=== PATIENT | female | born 1980 | race Two or more races ===

== ENCOUNTER 2017-10-28 09:32 | Emergency (ER) | payer OTHER ==
[2017-10-28 09:53] VITALS: BMI 26.6
--- NOTE | 2017-10-28 10:55 | PDOC ---
History of Present Illness - General Chief Complaint: Pain, Acute Stated Complaint: ABD PAIN Time Seen by Provider: 10/28/17 10:06 History Source: Patient Exam Limitations: No Limitations - History of Present Illness Travel History: No Initial Comments: 10/28/17 10:50 37y F no pmhx presents with intermittent lower abd pain. The patient states that she has been having nausea, vomiting, Diarrhea between Wednesday and Wednesday assoc With intermittent cramping abdominal pain - nausea vomiting diarrhea since resolved however she occasionally still has some lower abdominal cramping. She denies any fevers chills. He does note that family members have also been having similar symptoms. Patient notes that her abdominal pain has been improving over the past 2 days. She denies any blood in her vomitus, blood in her stool, and travel, abdominal surgery, dysuria, hematuria, foul-smelling urine. Patient denies any chest pain, shortness of breath, back pain, leg swelling, lightheadedness . She is currently having her period now. She denies any current abdominal pain She has a PMD at [facility] does not recall name no prior surgical hx Past History - Past Medical History Allergies/Adverse Reactions: Allergies Allergy/AdvReac Type Severity Reaction Status Date / Time No Known Allergies Allergy Verified 10/28/17 09:42 Home Medications: Ambulatory Orders NK [No Known Home Medication] 10/28/17 Anemia: No Asthma: No Cancer: No COPD: No Diabetes: No GI Disorders: No HTN: No Liver Disease: No Psychiatric Problems: No Thyroid Disease: No - Surgical History Abdominal Surgery: No Cardiac Surgery: No Cholecystectomy: No - Immunization History Immunization Up to Date: No - Suicide/Smoking/Psychosocial Hx Smoking History: Never smoked Have you smoked in the past 12 months: No Information on smoking cessation initiated: No Hx Alcohol Use: No Drug/Substance Use Hx: No Substance Use Type: None Review of Systems - Review of Systems Able to Perform ROS?: Yes Comments:: 10/28/17 10:52 Constitutional - no reported Fever, Chills, HEENT: no reported vision changes, sore throat Respiratory: no reported cough, sob, hemoptysis Cardiac: no reported chest pain, palpitations, light headedness, leg swelling Abd/GI: + abd pain, nausea, vomiting, diarrhea no reported blood per rectum, melena, : no reported dysuria, frequency, discharge Musculskelatal - no reported back pain, joint swelling skin - no reported bruising, erythema, rash neurological: no reported headache, numbness, focal weakness, tingling, ataxia, hematologic: no reported easy bruising, easy bleeding *Physical Exam - Vital Signs Last Vital Signs Temp Pulse Resp BP Pulse Ox 98.1 F 70 18 116/71 99 10/28/17 09:52 10/28/17 09:52 10/28/17 09:52 10/28/17 09:52 10/28/17 09:52 - Physical Exam Comments: 10/28/17 10:53 GENERAL: The patient is awake, alert, and fully oriented, Nontoxic - in no acute distress. HEAD: Normocephalic, atraumatic. EYES: extraocular movements intact, sclera anicteric, conjunctiva clear. ENT: Normal voice, Moist mucous membranes. NECK: Normal range of motion, supple LUNGS: Breath sounds equal, clear to auscultation bilaterally. No wheezes, no rhonchi, no rales. HEART: Regular rate and rhythm, normal S1 and S2 without murmur, rub or gallop. ABDOMEN: Soft, nontender, normoactive bowel sounds. No guarding, no rebound. . No CVA tenderness EXTREMITIES: Normal range of motion, no edema. No clubbing or cyanosis. No cords, erythema, or tenderness. NEUROLOGICAL: No facial assymetry, Normal speech, PSYCH: Normal mood, normal affect. SKIN: Warm, Dry, normal turgor, Medical Decision Making - Medical Decision Making 10/28/17 10:53 Suspect resolving gastroenteritis. She does not have any abdominal pain at this point her abdomen is soft and nontender. Check a UA to rule out UTI and . We will reassess abdomen this at this soft we'll discharge patient with outpatient follow-up Return precautions were discussed 10/28/17 11:39 abd soft nontender on reassesment will dc wiht pmd fu ua and hcg negative return precautions were discussed I discussed the physical exam findings, ancillary test results and final diagnoses with the patient. I answered all of the patient's questions. The patient was satisfied with the care received and felt comfortable with the discharge plan and treatment plan. The patient will call their primary care physician within 24 hours to arrange follow-up and will return to the Emergency Department with any new, persistent or worsening symptoms. *DC/Admit/Observation/Transfer Diagnosis at time of Disposition: Abdominal pain Qualifiers: Abdominal location: generalized Qualified Code(s): R10.84 - Generalized abdominal pain - Discharge Dispostion Disposition: HOME Condition at time of disposition: Improved Decision to Admit order: No - Referrals Referrals: Dariela Gonzales MD [Primary Care Provider] - - Patient Instructions Printed Discharge Instructions: DI for Abdominal Pain-Adult Additional Instructions: Regrese al departamento de emergencia de inmediato con CUALQUIER sntoma nuevo, persistente o que empeore, jose alfredo empeoramiento del dolor abdominal, fiebre, incapacidad para tolerar la ingesta oral, dolor en el pecho, dificultad para respirar o cualquier otra inquietud. Mantente radha hidratado. DEBE llamar y hacer un seguimiento con klein mdico maana. Klein visita al departamento de emergencia no est completa sin un seguimiento con klein mdico para la reevaluacin. Asegrese de que klein mdico revise los resultados de klein evaluacin de emergencia. Return to the emergency department immediately with ANY new, persistent or worsening symptoms including worsening abdominal pain, fevers, inability to tolerate oral intake, chest pain, shortness of breath or any other concerns. Stay well hydrated. You MUST call and follow up with your doctor tomorrow. Your emergency department visit is not complete without a followup with your doctor for reevaluation. Please make sure your doctor reviews the results of your emergency evaluation. Print Language: MARSHALLESE - Post Discharge Activity
[2017-10-28 11:32] LABS: URINE APPEARANCE TURBID; URINE BILIRUBIN NEGATIVE (<2.0 mg/dL); URINE COLOR YELLOW; URINE GLUCOSE (UA) NEGATIVE (NEGATIVE); URINE KETONE NEGATIVE (NEGATIVE); URINE LEUK ESTERASE NEGATIVE (NEGATIVE); URINE NITRITE NEGATIVE (NEGATIVE); URINE PROTEIN NEGATIVE (NEGATIVE); URINE UROBILINOGEN NEGATIVE mg/dL (0.2-1.0)
[2017-10-28 11:43] VITALS: BP 110/68; PULSE 64; TEMP 98.6
== END 2017-10-28 11:48 | disposition home or self-care (01) ==
LOC: JER 09:32
DX: K52.9 Noninfective gastroenteritis and colitis, unspecified (principal)
CPT/HCPCS: 81003; 84703; 87086; 99283-25